=== PATIENT | male | born 1940 | race Asian ===

== ENCOUNTER → 2017-10-12 | Outpatient (CLI) | payer OTHER | END | disposition home or self-care (01) | LOC: RADPV 08:44 | PROVIDERS: ATTEND Internal Medicine | DX: R94.5 Abnormal results of liver function studies (principal) | CPT/HCPCS: 76700 ==

== ENCOUNTER 2019-09-13 06:48 | Emergency (ER) | payer MEDICARE, MEDICAID ==
[~2019-09-13] VITALS: Ht 162.6 cm; Wt 54.5 kg
[2019-09-13] MEDS ORDERED: TAMS-13 PO (07:14)
[2019-09-13] MEDS ORDERED: ASPI81 PO (07:14)
[2019-09-13] MEDS ORDERED: LABETALOL HCL 5 MG/ML 20 ML VIAL IVP ONE (07:15)
[2019-09-13] MEDS ORDERED: OXYMETAZOLINE HCL 0.05% 15 ML NASAL SPRAY NASAL ONE (07:15)
[2019-09-13 07:33] LABS: BASOPHILS % (AUTO) 0.3 % (0.0-2.0); EOSINOPHILS % (AUTO) 2.7 % (1.0-6.0); HEMATOCRIT 31.5 % (41-53); HEMOGLOBIN 9.9 g/dL (13.5-17.5); LYMPHOCYTES # (AUTO) 0.9 K/uL (1.0-4.8); LYMPHOCYTES % (AUTO) 13.2 % (22.0-44.0); MEAN CORPUSCULAR HEMOGLOBIN 23.7 pg (26.0-34.0); MEAN CORPUSCULAR HGB CONC 31.4 G/dL (31.0-37.0); MEAN CORPUSCULAR VOLUME 76 fL (80-100); MONOCYTES # (AUTO) 0.5 K/uL (0.1-1.0); NEUTROPHILS # (AUTO) 5.1 K/uL (1.8-7.7); NEUTROPHILS % (AUTO) 76.8 % (40.0-70.0); PLATELET COUNT (AUTO) 336 K/uL (150-450); RED BLOOD CELL COUNT(AUTO) 4.18 MIL/uL (4.50-5.90); RED CELL DISTRIBUTION WIDTH 14.3 % (11.5-14.5)
[2019-09-13 07:43] LABS: ANION GAP 6 mmol/L (8-16); CALCIUM, TOTAL 8.4 mg/dL (8.8-10.5); CARBON DIOXIDE 29 mmol/L (22-29); CHLORIDE 106 mmol/L (98-107); CREATININE 0.91 mg/dL (0.60-1.30); GLUCOSE,RANDOM 171 mg/dL (70-110); POTASSIUM 3.8 mmol/L (3.5-5.1); SODIUM SERUM 141 mmol/L (136-145); UREA NITROGEN, BLOOD 16 mg/dL (7-18)
[2019-09-13 07:44] LABS: GLOMERULAR FILTR. RATE CALC > 60 mL/min (>60)
[2019-09-13 07:46] LABS: PROTHROMBIN TIME 9.7 SEC (9.4-11.6)
[2019-09-13 07:49] LABS: ALBUMIN 3.2 g/dL (3.4-5.0); BILIRUBIN,TOTAL 0.7 mg/dL (0.1-1.0); TOTAL PROTEIN, SERUM 7.8 g/dL (6.4-8.2)
[2019-09-13 08:06] LABS: ALANINE AMINOTRANSFERASE 17 U/L (12-78); ALKALINE PHOSPHATASE 49 U/L (46-116); ASPARTATE AMINOTRANSFERASE 14 U/L (15-37)
[2019-09-13] MEDS ORDERED: AmLODIPine BESYLATE 5 MG TABLET PO ONE (09:15)
[2019-09-13 09:20] VITALS: BP 138/76
== END 2019-09-13 10:28 | disposition home or self-care (01) ==
LOC: EMS 06:48
DX: R04.0 Epistaxis (principal); I10 Essential (primary) hypertension; R73.9 Hyperglycemia, unspecified; F17.210 Nicotine dependence, cigarettes, uncomplicated; Z79.899 Other long term (current) drug therapy; Z98.890 Other specified postprocedural states
CPT/HCPCS: 36415; 80053; 84484; 85025; 85610; 85730; 93005; 96374; 99285; J3490

== ENCOUNTER 2020-01-28 23:28 | Emergency (ER) | payer MEDICAID, MEDICARE ==
[~2020-01-28] VITALS: Ht 162.6 cm; Wt 54.5 kg
[~2020-01-28 23:28] MED LIST: ASPI-728 PO; TAMS-13 PO
[2020-01-29] MEDS ORDERED: AmLODIPine BESYLATE 5 MG TABLET PO ONE (01:30)
[2020-01-29 02:35] VITALS: BP 151/81
== END 2020-01-29 03:01 | disposition home or self-care (01) ==
LOC: EMS 23:28
DX: R04.0 Epistaxis (principal); F17.210 Nicotine dependence, cigarettes, uncomplicated

== ENCOUNTER 2020-01-30 19:47 | Emergency (ER) | payer MEDICARE, OTHER ==
[~2020-01-30] VITALS: Ht 162.6 cm; Wt 54.5 kg
[2020-01-30] MEDS ORDERED: AmLODIPine BESYLATE 5 MG TABLET PO ONE (20:15)
[2020-01-30] MEDS ORDERED: OXYMETAZOLINE HCL 0.05% 15 ML NASAL SPRAY NASAL ONE (20:15)
[2020-01-30 20:22] LABS: BASOPHILS % (AUTO) 0.8 % (0.0-2.0); HEMATOCRIT 32.7 % (41-53); HEMOGLOBIN 10.3 g/dL (13.5-17.5); LYMPHOCYTES # (AUTO) 1.4 K/uL (1.0-4.8); LYMPHOCYTES % (AUTO) 24.6 % (22.0-44.0); MEAN CORPUSCULAR HEMOGLOBIN 23.3 pg (26.0-34.0); MEAN CORPUSCULAR HGB CONC 31.6 G/dL (31.0-37.0); MEAN CORPUSCULAR VOLUME 74 fL (80-100); MONOCYTES # (AUTO) 0.4 K/uL (0.1-1.0); MONOCYTES % (AUTO) 6.9 % (2.0-9.0); NEUTROPHILS # (AUTO) 3.8 K/uL (1.8-7.7); NEUTROPHILS % (AUTO) 65.7 % (40.0-70.0); PLATELET COUNT (AUTO) 319 K/uL (150-450); RED BLOOD CELL COUNT(AUTO) 4.43 MIL/uL (4.50-5.90); RED CELL DISTRIBUTION WIDTH 14.8 % (11.5-14.5)
[2020-01-30 20:36] LABS: ANION GAP 9 mmol/L (8-16); CALCIUM, TOTAL 8.8 mg/dL (8.8-10.5); CARBON DIOXIDE 25 mmol/L (22-29); CHLORIDE 102 mmol/L (98-107); CREATININE 0.93 mg/dL (0.60-1.30); GLOMERULAR FILTR. RATE CALC > 60 mL/min (>60); GLUCOSE,RANDOM 158 mg/dL (70-110); POTASSIUM 3.5 mmol/L (3.5-5.1); SODIUM SERUM 136 mmol/L (136-145); UREA NITROGEN, BLOOD 21 mg/dL (7-18)
[2020-01-30 20:49] LABS: ALANINE AMINOTRANSFERASE 26 U/L (12-78); ALBUMIN 3.9 g/dL (3.4-5.0); ALKALINE PHOSPHATASE 49 U/L (46-116); ASPARTATE AMINOTRANSFERASE 19 U/L (15-37); BILIRUBIN,TOTAL 1.4 mg/dL (0.1-1.0)
[2020-01-30] MEDS ORDERED: BACITRACIN 0.9 GM PACKET OINTMENT TP ONE (21:34)
[2020-01-31 01:32] VITALS: BP 128/82
[2020-01-31] MEDS ORDERED: MELA3TAB82 PO (11:42)
[2020-01-31] MEDS ORDERED: CARV3 PO (11:42)
[2020-01-31] MEDS ORDERED: AMLO2.5T4 PO (11:42)
[2020-01-31] MEDS ORDERED: MULT-1290 PO (11:42)
== END 2020-01-31 01:25 | disposition home or self-care (01) ==
LOC: EMS 19:50
DX: R04.0 Epistaxis (principal); I10 Essential (primary) hypertension; F17.210 Nicotine dependence, cigarettes, uncomplicated; Z79.82 Long term (current) use of aspirin; Z79.899 Other long term (current) drug therapy
CPT/HCPCS: 30901

== ENCOUNTER 2020-01-31 11:12 | Emergency (ER) | payer MEDICARE, OTHER ==
[~2020-01-31] VITALS: Ht 162.6 cm; Wt 54.5 kg
[2020-01-31] MEDS ORDERED: MULT-1290 PO (11:42)
[2020-01-31] MEDS ORDERED: MELA3TAB82 PO (11:42)
[2020-01-31] MEDS ORDERED: CARV3 PO (11:42)
[2020-01-31] MEDS ORDERED: AMLO2.5T4 PO (11:42)
[2020-01-31] MEDS ORDERED: OXYMETAZOLINE HCL 0.05% 15 ML NASAL SPRAY NASAL ONE (12:45)
[2020-01-31 14:02] VITALS: BP 122/75
== END 2020-01-31 15:10 | disposition home or self-care (01) ==
LOC: EMS 11:17
DX: R04.0 Epistaxis (principal); F17.210 Nicotine dependence, cigarettes, uncomplicated; Z79.899 Other long term (current) drug therapy

== ENCOUNTER 2020-02-01 17:07 | Emergency (ER) | payer MEDICARE, OTHER ==
[~2020-02-01] VITALS: Ht 162.6 cm; Wt 54.5 kg
[~2020-02-01 17:07] MED LIST changes: +AMLO2.5T4 PO; +CARV3 PO; +MELA3TAB82 PO; +MULT-1290 PO
[2020-02-01] MEDS ORDERED: BENZOCAINE 20% 50 MCG/SPRAY 57 GM TP ONE (17:45)
[2020-02-01 20:57] VITALS: BP 155/93
== END 2020-02-01 21:12 | disposition home or self-care (01) ==
LOC: EMS 17:15
DX: R04.0 Epistaxis (principal); F17.210 Nicotine dependence, cigarettes, uncomplicated
CPT/HCPCS: 30901; 99406

== ENCOUNTER 2020-02-04 06:44 | Emergency (ER) | payer MEDICARE, OTHER ==
[~2020-02-04] VITALS: Ht 162.6 cm; Wt 54.5 kg
[2020-02-04] MEDS ORDERED: TRANEXAMIC ACID 1,000 MG in DEXTROSE 5%-WATER 50 ML IV ONE (07:45)
[2020-02-04] MEDS ORDERED: OXYMETAZOLINE HCL 0.05% 15 ML NASAL SPRAY NASAL ONE (07:45)
[2020-02-04] MEDS ORDERED: SILVER NITRATE APPLICATOR 1 EA STICK TP ONE (08:00)
[2020-02-04 11:17] VITALS: BP 151/81
== END 2020-02-04 11:30 | disposition home or self-care (01) ==
LOC: EMS 06:46
DX: R04.0 Epistaxis (principal); I10 Essential (primary) hypertension; F17.210 Nicotine dependence, cigarettes, uncomplicated
CPT/HCPCS: 30901; 96374; 99284; J3490; J7060

== ENCOUNTER 2020-02-06 10:33 | Emergency (ER) | payer MEDICARE, OTHER ==
[~2020-02-06] VITALS: Ht 162.6 cm; Wt 54.5 kg
[2020-02-06] MEDS ORDERED: OXYMETAZOLINE HCL 0.05% 15 ML NASAL SPRAY NASAL ONE (11:00)
[2020-02-06 12:05] VITALS: BP 126/89
== END 2020-02-06 12:06 | disposition home or self-care (01) ==
LOC: EMS 10:35
DX: Z48.00 Encounter for change or removal of nonsurgical wound dressing (principal)

== ENCOUNTER 2020-02-09 05:01 | Emergency (ER) | payer MEDICARE, OTHER ==
[~2020-02-09] VITALS: Ht 160 cm; Wt 54.5 kg
[2020-02-09 06:41] VITALS: BP 155/76
== END 2020-02-09 06:59 | disposition home or self-care (01) ==
LOC: EMS 05:11
DX: R04.0 Epistaxis (principal); I10 Essential (primary) hypertension; F17.210 Nicotine dependence, cigarettes, uncomplicated

== ENCOUNTER 2020-05-31 09:37 | Emergency (ER) | payer MEDICARE, OTHER ==
[~2020-05-31] VITALS: Ht 162.6 cm; Wt 54.5 kg
[~2020-05-31 09:37] MED LIST changes: -AMLO2.5T4 PO; +AMLO2.5T96 PO
[2020-05-31 09:40] VITALS: BP 137/72
[2020-05-31 11:00] LABS: BASOPHILS % (AUTO) 0.9 % (0.0-2.0); EOSINOPHILS % (AUTO) 1.8 % (1.0-6.0); HEMATOCRIT 30.9 % (41-53); HEMOGLOBIN 9.9 g/dL (13.5-17.5); LYMPHOCYTES # (AUTO) 1.4 K/uL (1.0-4.8); MEAN CORPUSCULAR HEMOGLOBIN 23.7 pg (26.0-34.0); MEAN CORPUSCULAR HGB CONC 31.9 G/dL (31.0-37.0); MEAN CORPUSCULAR VOLUME 74 fL (80-100); MONOCYTES # (AUTO) 0.4 K/uL (0.1-1.0); MONOCYTES % (AUTO) 8.6 % (2.0-9.0); NEUTROPHILS # (AUTO) 2.6 K/uL (1.8-7.7); NEUTROPHILS % (AUTO) 56.7 % (40.0-70.0); PLATELET COUNT (AUTO) 286 K/uL (150-450); RED BLOOD CELL COUNT(AUTO) 4.17 MIL/uL (4.50-5.90); RED CELL DISTRIBUTION WIDTH 15.2 % (11.5-14.5)
== END 2020-05-31 11:40 | disposition home or self-care (01) ==
LOC: EMS 09:45
DX: R04.0 Epistaxis (principal); I10 Essential (primary) hypertension; F17.210 Nicotine dependence, cigarettes, uncomplicated

== ENCOUNTER 2021-02-15 09:17 | Emergency (ER) | payer MEDICARE, OTHER ==
[~2021-02-15] VITALS: Ht 160 cm; Wt 54.5 kg
[~2021-02-15 09:17] MED LIST changes: +ASPI-1450 PO; -ASPI-728 PO; -MELA3TAB82 PO; +MELA3TAB89 PO
[2021-02-15 09:22] VITALS: BP 157/77
== END 2021-02-15 09:34 | disposition home or self-care (01) ==
LOC: EMS 09:27
DX: R04.0 Epistaxis (principal); I10 Essential (primary) hypertension; F17.210 Nicotine dependence, cigarettes, uncomplicated
CPT/HCPCS: 99281; Z7502

== ENCOUNTER 2021-05-12 11:48 | Emergency (ER) | payer MEDICARE, OTHER ==
[~2021-05-12] VITALS: Ht 162.6 cm; Wt 59.1 kg
[2021-05-12 13:55] VITALS: BP 128/64
== END 2021-05-12 13:57 | disposition home or self-care (01) ==
LOC: EMS 11:58
DX: R04.0 Epistaxis (principal); Z79.899 Other long term (current) drug therapy; F17.210 Nicotine dependence, cigarettes, uncomplicated
CPT/HCPCS: 99281; Z7502